=== PATIENT | female | born 1965 | race Caucasian/White ===

== ENCOUNTER → 2022-12-30 09:14 | Outpatient (CLI) | payer OTHER, SELFPAY ==
--- NOTE | ~2022-12-30 | MMUS_ITS ---
EXAMINATION: MM diagnostic gerardo BI w bowen, US breast LT limited HISTORY: Subareolar left breast mass TECHNIQUE: Craniocaudal, mediolateral, and mediolateral oblique 3-D tomosynthesis images of the sherrias ts were performed and synthetic 2-D images were generated. CAD analysis was submitted and interpreted . High resolution limited left breast ultrasound was performed. COMPARISON: No prior mammogram is currently available for comparison. BREAST PARENCHYMAL COMPOSITION: The breasts are almost entirely fatty. FINDINGS: MAMMOGRAPHIC FINDINGS: There is a 6.1 x 4.7 cm irregular high density mass with microlobulated margins in the subareolar asp ect of the left breast corresponding to the palpable abnormality of concern. No suspicious mass, calc ification, or architectural distortion are identified in the right breast to suggest malignancy. ULTRASOUND: There is a 6.5 x 4.5 cm oval, circumscribed, parallel, hypoechoic mass with posterior acoustic shadow ing and internal vascularity in the subareolar breast corresponding to the palpable abnormality of co ncern. IMPRESSION: 1. Suspicious left breast mass corresponding to the palpable abnormality of concern. 2. Ultrasound-guided biopsy is recommended. BI-RADS category 5, highly suggestive of malignancy. Reviewed, dictated and finalized at location A. IMPRESSION: 1. Suspicious left breast mass corresponding to the palpable abnormality of con cern. 2. Ultrasound-guided biopsy is recommended. BI-RADS category 5, highly suggestive of malignancy.
== END ==
PROVIDERS: PCP Advanced Practice Midwife; Visit Provider Advanced Practice Midwife
DX: N63.42 Unspecified lump in left breast, subareolar (principal)
CPT/HCPCS: 76642; 77062; 77066; G0279